=== PATIENT | male | born 1985 | race American Indian/Alaskan Native ===

== ENCOUNTER 2017-11-10 14:38 | Emergency (ER) | payer MEDICAID, OTHER ==
[2017-11-10 14:39] VITALS: BMI 28.4
[2017-11-10 14:52] VITALS: O2SAT 99
[2017-11-10] MEDS ORDERED: cefTRIAXone (Rocephin) 250 mg Inj IM STA (15:13)
[2017-11-10 15:29] LABS: SQUAMOUS EPITHIAL < 1 /hpf (0-5); URINE BILIRUBIN NEGATIVE (NEGATIVE); URINE BLOOD 1+ (NEGATIVE); URINE CLARITY Clear (Clear); URINE COLOR Yellow (YELLOW); URINE GLUCOSE (UA) NORMAL (Normal); URINE LEUKOCYTE ESTERASE TRACE Leu/uL (Negative); URINE PROTEIN NEGATIVE (NEGATIVE); URINE UROBILINOGEN NORMAL mg/dL (0.2-1.0)
--- NOTE | 2017-11-10 15:39 | C.PDOC ---
History Of Present Illness 32 y/o male presents to the ED with 2 week history of suprapubic discomfort and purulent penile discharge. States that he had unprotected sex with a new partner recently. Also requesting HIV test in the ER. Otherwise patient denies any fever, chills, back pain, dysuria, or incontinence. Time Seen by Provider: 11/10/17 14:57 Chief Complaint (Nursing): Male Genitourinary History Per: Patient History/Exam Limitations: no limitations Onset/Duration Of Symptoms: Days Current Symptoms Are (Timing): Still Present Past Medical History Reviewed: Historical Data, Nursing Documentation, Vital Signs Vital Signs: Last Vital Signs Temp 98.7 F 11/10/17 15:54 Pulse 66 11/10/17 15:54 Resp 20 11/10/17 15:54 BP 138/83 11/10/17 15:54 Pulse Ox 99 11/10/17 16:43 - Medical History PMH: Denies: Depression Surgical History: No Surg Hx Family History: States: Unknown Family Hx - Social History Hx Tobacco Use: Yes Hx Alcohol Use: Yes Hx Substance Use: No - Immunization History Hx Tetanus Toxoid Vaccination: No Hx Influenza Vaccination: No Hx Pneumococcal Vaccination: No Review Of Systems Except As Marked, All Systems Reviewed And Found Negative. Constitutional: Negative for: Fever, Chills Gastrointestinal: Positive for: Abdominal Pain Genitourinary: Positive for: Penile Discharge. Negative for: Dysuria, Incontinence Musculoskeletal: Negative for: Back Pain Physical Exam - Physical Exam Appears: Non-toxic, No Acute Distress Skin: Normal Color, Warm, Dry Head: Atraumatic, Normacephalic Eye(s): bilateral: Normal Inspection Oral Mucosa: Moist Neck: Normal ROM, Supple Chest: Symmetrical Respiratory: No Accessory Muscle Use Gastrointestinal/Abdominal: Soft, Tenderness (mild suprapubic tenderness), No Guarding, No Rebound Extremity: Bilateral: Atraumatic, Normal Color And Temperature, Normal ROM Neurological/Psych: Oriented x3, Normal Speech Gait: Steady ED Course And Treatment O2 Sat by Pulse Oximetry: 99 (RA) Pulse Ox Interpretation: Normal Progress Note: Urine, cultures, and GC/chlamydia labs sent. Patient treated with IM Rocephin and PO Doryx. Referred patient to the clinic for further testing. Disposition Counseled Patient/Family Regarding: Diagnosis, Need For Followup, Rx Given - Disposition Referrals: [facility] [Outside] Disposition: HOME/ ROUTINE Disposition Time: 15:36 Condition: GOOD Additional Instructions: Follow up in Clinic within 2-3 days. Return to ED if feel worse. Prescriptions: Doxycycline Hyclate [Doryx] 100 mg PO BID #14 cap Instructions: Urethritis (DC), Prostatitis (DC) Forms: [facility] (Indian) - POA Present On Arrival: None - Clinical Impression Clinical Impression: Urethritis, Prostatitis - PA / [employer] DANCER / Resident Statement MD/DO has reviewed & agrees with the documentation as recorded. - Scribe Statement The provider has reviewed the documentation as recorded by the Scribe (Mckenzie Hand) All medical record entries made by the Scribe were at my direction and personally dictated by me. I have reviewed the chart and agree that the record accurately reflects my personal performance of the history, physical exam, medical decision making, and the department course for this patient. I have also personally directed, reviewed, and agree with the discharge instructions and disposition.
[2017-11-10 15:55] VITALS: BP 138/83; PULSE 66; RESP 20; TEMP 98.7
== END 2017-11-10 15:59 | disposition home or self-care (01) ==
LOC: C.ER 14:38
DX: N41.9 Inflammatory disease of prostate, unspecified (principal); N34.2 Other urethritis
CPT/HCPCS: 81001; 87086; 87491; 87591; 96372; 99284; J0696